=== PATIENT | female | born 1930 | race Caucasian/White ===

== ENCOUNTER 2017-11-08 21:04 | Emergency (ER) | payer MEDICARE ==
[~2017-11-08] VITALS: Ht 152.4 cm; Wt 104.3 kg
[~2017-11-08 21:04] MED LIST: AMIT25; AMIT50; AMIT50 PO; AMLO5 PO; ASPI81CH; ASPI81EC PO; BACTRIM DS PO; CALCNI; CHOL10002 PO; CLOP75 PO; CODGUAEL PO; COLE625 PO; CORGARD40 MG PO; DOCU100 PO; DOXY100 PO; Dicyclomine HCl10 MG PO; Diovan320 MG PO; ESTR25VT; ESTR25VT PV; ESZO1 PO; ESZO3 PO; EZET10; EZET10 PO; FOSI10; HYDCHL12.5; HYDCHL25; HYDCHL25 PO; I-CAPS WITH LU1 EACH PO; LORA1; METF500; METF500 PO; METO50ER PO; NADO20; NADO20 PO; NADO40; NADO40 PO; NADO80; NITR.6SL SL; Norco 5-325 Ta1 EACH PO; ONDA4ODT MM; Ocuvite Lutein1 EACH PO; PHENA200; PHENA200 PO; PIOG15; PIOG30 PO; ROSU10TA; RXSULTRIDS; SALONPAS TOP; SPIR25; SPIR25 PO; SULTRIDS PO; SULTRISS PO; TORSE20 PO; TRAACE; VAGIFEM; [UNRECOGNIZED DRUG - OTHER] PO
== END 2017-11-08 22:21 | disposition home or self-care (01) ==
LOC: ER 21:04
DX: H11.32 Conjunctival hemorrhage, left eye (principal); E11.9 Type 2 diabetes mellitus without complications; E78.00 Pure hypercholesterolemia, unspecified; Z88.1 Allergy status to other antibiotic agents; Z88.8 Allergy status to other drugs, medicaments and biological substances; Z88.5 Allergy status to narcotic agent; Z88.6 Allergy status to analgesic agent; Z79.899 Other long term (current) drug therapy
CPT/HCPCS: 99282

== ENCOUNTER → 2017-11-11 | Outpatient (CLI) | payer MEDICARE ==
[2017-11-11 14:52] LABS: Source, Urine Clean Catch
[2017-11-11 16:06] LABS: Bilirubin, Urine Neg (Neg); Blood, Urine Neg (Neg); Glucose Qualitative, Urine Neg (Neg); Ketones, Urine Neg (Neg); Leukocyte Esterase, Urine 2+ (Neg); Nitrite, Urine Neg (Neg); Protein, Urine 2+ (Neg); Specific Gravity, Urine 1.015 (1.003-1.022); Urobilinogen, Urine NORM (Normal)
[2017-11-11 16:18] LABS: Appearance, Urine Clear (Clear); Color, Urine Pale Yellow (P-Yellow)
[2017-11-11 16:27] LABS: Bacteria Mod /hpf; Squamous Epithelial Cells Mod /hpf (Few); White Blood Cells, Urine 25-50 /hpf (0-5)
== END | disposition home or self-care (01) ==
LOC: LAB SHORT 14:51 → LAB 14:51 → EDSTATUS 11-11 14:30 → LAB FUT 11-11 14:30
PROVIDERS: Internal Medicine
DX: N39.0 Urinary tract infection, site not specified (principal)
CPT/HCPCS: 81001; 87077; 87086; 87186

== ENCOUNTER → 2017-11-19 | Outpatient (CLI) | payer MEDICARE ==
[2017-11-19 09:55] LABS: Source, Urine Clean Catch
[2017-11-19 12:52] LABS: Bilirubin, Urine Neg (Neg); Blood, Urine Neg (Neg); Glucose Qualitative, Urine Neg (Neg); Ketones, Urine Neg (Neg); Leukocyte Esterase, Urine Neg (Neg); Nitrite, Urine Neg (Neg); Protein, Urine Neg (Neg); Urobilinogen, Urine NORM (Normal)
[2017-11-19 13:11] LABS: Appearance, Urine Clear (Clear); Color, Urine Pale Yellow (P-Yellow)
== END | disposition home or self-care (01) ==
LOC: LAB 09:54 → LAB SHORT 09:54 → EDSTATUS 11-14 17:50 → LAB FUT 11-14 17:50
PROVIDERS: Internal Medicine
DX: N39.0 Urinary tract infection, site not specified (principal)
CPT/HCPCS: 81003

== ENCOUNTER → 2017-11-27 | Outpatient (CLI) | payer MEDICARE | END | disposition home or self-care (01) | LOC: LAB 13:41 → LAB SHORT 13:41 | DX: N39.0 Urinary tract infection, site not specified (principal) | CPT/HCPCS: 87077; 87086; 87186 ==

== ENCOUNTER → 2018-08-25 | Outpatient (CLI) | payer MEDICARE ==
[~2018-08-25] MED LIST changes: +ASCO500; +ASPI325 PO; +Avapro150 MG PO; +GLIM2 PO; +POTCHL20ER PO
[2018-08-25 09:53] LABS: Source, Urine Clean Catch
[2018-08-25 12:56] LABS: Appearance, Urine Hazy (Clear); Bilirubin, Urine Neg (Neg); Blood, Urine 1+ (Neg); Color, Urine Yellow (P-Yellow); Glucose Qualitative, Urine Neg (Neg); Ketones, Urine Neg (Neg); Leukocyte Esterase, Urine 1+ (Neg); Nitrite, Urine Neg (Neg); Protein, Urine 1+ (Neg); Specific Gravity, Urine 1.015 (1.003-1.022); Urobilinogen, Urine NORM (Normal)
[2018-08-25 14:01] LABS: Red Blood Cells, Urine 0-2 /hpf (0-2)
[2018-08-25 14:02] LABS: Bacteria Not Seen /hpf; Squamous Epithelial Cells Few /hpf (Few)
== END | disposition home or self-care (01) ==
LOC: LAB SHORT 09:52 → LAB 09:52
PROVIDERS: Internal Medicine
DX: N39.0 Urinary tract infection, site not specified (principal)
CPT/HCPCS: 81001; 87077; 87086; 87186

== ENCOUNTER 2019-01-27 20:42 | Observation (INO) | payer MEDICARE ==
[~2019-01-27] VITALS: Ht 152.4 cm; Wt 82.3 kg
[2019-01-27 21:07] LABS: BASOPHILS ABSOLUTE AUTO 0.07 K/mm3 (0.00-0.23); BASOPHILS PERCENT AUTO 1 % (0-2); EOSINOPHILS ABSOLUTE AUTO 0.34 K/mm3 (0.00-0.68); EOSINOPHILS PERCENT AUTO 3 % (0-6); Hematocrit 38.5 % (33.0-51.0); Hemoglobin 12.4 g/dL (11.5-16.0); IMMATURE GRAN ABSOLUTE AUTO 0.03 K/mm3 (0.00-0.10); IMMATURE GRAN PERCENT AUTO 0 % (0-1); LYMPHOCYTES ABSOLUTE AUTO 2.63 K/mm3 (0.84-5.20); LYMPHOCYTES PERCENT AUTO 24 % (21-46); MONOCYTES ABSOLUTE AUTO 0.91 K/mm3 (0.16-1.47); MONOCYTES PERCENT AUTO 8 % (4-13); Mean Corpuscular HGB 30.3 pg (26.0-34.0); Mean Corpuscular HGB Conc 32.2 g/dL (31.5-36.5); Mean Corpuscular Volume 94 fL (80-100); Mean Platelet Volume 10.4 fL (9.1-12.4); NEUTROPHILS ABSOLUTE AUTO 7.14 K/mm3 (1.96-9.15); NEUTROPHILS PERCENT AUTO 64 % (41-73); Platelet Count 263 K/mm3 (150-400); RDW Coefficient Variation 13.2 % (11.7-14.2); RDW Standard Deviation 45.5 fL (35.1-46.3); Red Blood Cell Count 4.09 M/mm3 (3.80-5.20); White Blood Cell Count 11.12 K/mm3 (4.00-11.30)
[2019-01-27 21:28] LABS: Alanine Aminotransfer (ALT/SGP 27 U/L (12-78); Albumin, Blood 4.1 g/dL (3.4-5.0); Albumin/Globulin Ratio 1.1 (0.8-1.8); Alk Phos 87 U/L (50-136); Anion Gap 10 mmol/L (6-16); Aspartate Aminotrans (AST/SGOT 14 U/L (12-37); Bilirubin, Total 0.4 mg/dL (0.1-1.0); Blood Urea Nitrogen 46 mg/dL (8-24); CO2, Blood 22 mmol/L (21-32); Calcium, Blood 9.4 mg/dL (8.5-10.1); Chloride, Blood 105 mmol/L (98-108); Creatinine, Blood 1.64 mg/dL (0.40-1.00); Globulin, Blood 3.7 g/dL (2.2-4.0); Glomerular Filtration Rate 31 (60-); Glucose, Blood 215 mg/dL (70-99); Potassium, Blood 3.8 mmol/L (3.5-5.5); Sodium, Blood 137 mmol/L (136-145); Total Protein, Blood 7.8 g/dL (6.4-8.2); Troponin I <0.015 ng/mL (0.000-0.040)
[2019-01-27] MEDS ORDERED: CEPH250A PO (21:45)
[2019-01-27 23:02] LABS: Source, Urine Clean Catch
[2019-01-27 23:04] LABS: Bilirubin, Urine Neg (Neg); Blood, Urine Neg (Neg); Glucose Qualitative, Urine Neg (Neg); Ketones, Urine Neg (Neg); Leukocyte Esterase, Urine Neg (Neg); Nitrite, Urine Neg (Neg); Protein, Urine 2+ (Neg); Specific Gravity, Urine 1.015 (1.003-1.022); Urobilinogen, Urine NORM (Normal)
[2019-01-27 23:05] LABS: Appearance, Urine Clear (Clear); Color, Urine Yellow (P-Yellow)
[2019-01-27 23:15] LABS: Bacteria Not Seen /hpf; Red Blood Cells, Urine Not Seen /hpf (0-2); Squamous Epithelial Cells Few /hpf (Few); White Blood Cells, Urine Rare /hpf (0-5)
[2019-01-28 00:01] LABS: International Normalized Ratio 0.96; Prothrombin Time Results 10.2 Sec (9.7-11.5)
--- NOTE | 2019-01-28 05:36 | NUR ---
NEW ADMIT ARRIVED FROM ER VIA STRETCHER AT 0156. PT. A&O X4, AMBULATES X1 ASSIST. ASSISTED INTO BED BY WRAP CHECKER AND THIS NURSE. PT. ON HEPARIN GTT WHICH WAS STARTED IN THE ED, TOLERATING WELL. NPO FOR AM VQ SCAN. R/O PE DUE TO ELEVATED D-DIMER AND C/O LT CALF PAIN W/ SWELLING. VENOUS DOPPLER TO BE DONE. PT. USES CPAP AT HOME, IS REFUSING TO USE CPAP WHILE IN THE HOSPITAL. PLACED ON CONTINOUS PULSE OXIMETRY PER ORDER. NOTED SATS DROP INTO THE HIGH 80'S WHEN SLEEPING. 1L OF 02 PLACED ON PT. FOR COMFORT. PT. RESTED COMFORTABLY T/O NIGHT, NO APPARENT DISTRESS NOTED. CALL LIGHT IS WITHIN REACH AND SIDE RAILS UP X2. WILL CONT TO MONITOR.
--- NOTE | 2019-01-28 08:00 | NUR ---
PT. HAS 2 IV'S IN HER RAC AND RFA. NOT DOCUMENTED WHEN PLACED IN ER.
[2019-01-28 08:35] LABS: Hematocrit 37.2 % (33.0-51.0); Hemoglobin 12.1 g/dL (11.5-16.0); Mean Corpuscular HGB 30.4 pg (26.0-34.0); Mean Corpuscular HGB Conc 32.5 g/dL (31.5-36.5); Mean Corpuscular Volume 94 fL (80-100); Mean Platelet Volume 10.6 fL (9.1-12.4); Platelet Count 249 K/mm3 (150-400); RDW Coefficient Variation 13.3 % (11.7-14.2); RDW Standard Deviation 45.5 fL (35.1-46.3); Red Blood Cell Count 3.98 M/mm3 (3.80-5.20); White Blood Cell Count 9.33 K/mm3 (4.00-11.30)
[2019-01-28 08:52] LABS: Bun/Creatinine Ratio 28.3 (12.0-20.0); Calcium, Blood 9.2 mg/dL (8.5-10.1); Creatinine, Blood 1.2 mg/dL (0.40-1.00); Potassium, Blood 4.1 mmol/L (3.5-5.5)
[2019-01-28 09:01] LABS: International Normalized Ratio 0.97; Prothrombin Time Results 10.3 Sec (9.7-11.5)
--- NOTE | 2019-01-28 10:53 | NUR ---
Echocardiogram completed.
[2019-01-28] MEDS ORDERED: NITR.6SL SL ×2 (16:50→16:57)
--- NOTE | 2019-01-28 16:56 | NUR ---
PT. IV IN THE R AC AND RFA DISCONTINUED INTACT
== END 2019-01-28 17:58 | disposition home or self-care (01) ==
LOC: ER 20:42 → MEDS 20:43 → ERHOLD 20:43 → MEDS 01-28 01:52 → ENPENDDIS 01-28 16:03 → MEDS 01-28 17:58
PROVIDERS: Emergency Medicine; Nurse Practitioner Acute Care; ADMIT Hospitalist
DX: R00.0 Tachycardia, unspecified (principal); R07.89 Other chest pain; E11.22 Type 2 diabetes mellitus with diabetic chronic kidney disease; I13.0 Hypertensive heart and chronic kidney disease with heart failure and stage 1 through stage 4 chronic kidney disease, or unspecified chronic kidney disease; I50.42 Chronic combined systolic (congestive) and diastolic (congestive) heart failure; N18.3 Chronic kidney disease, stage 3 (moderate); I25.10 Atherosclerotic heart disease of native coronary artery without angina pectoris; Z88.1 Allergy status to other antibiotic agents; Z95.5 Presence of coronary angioplasty implant and graft; Z88.8 Allergy status to other drugs, medicaments and biological substances; Z88.5 Allergy status to narcotic agent; Z79.899 Other long term (current) drug therapy
CPT/HCPCS: 36415; 71046; 78582; 80048; 80053; 81001; 82947; 83735; 83880; 84484; 85025; 85027; 85379; 85610; 85730; 93005; 93010; 93306; 93971; 94762; 96360; 96361; 99285-25; A9540; A9558; G0378; J1644; J7030

== ENCOUNTER → 2019-04-03 | Outpatient (CLI) | payer MEDICARE ==
[~2019-04-03] MED LIST changes: +CEPH250A PO
[2019-04-03 10:15] LABS: Source, Urine Clean Catch
[2019-04-03 10:52] LABS: Appearance, Urine Hazy (Clear); Bilirubin, Urine Neg (Neg); Blood, Urine 2+ (Neg); Color, Urine Yellow (P-Yellow); Glucose Qualitative, Urine Neg (Neg); Ketones, Urine Neg (Neg); Leukocyte Esterase, Urine 3+ (Neg); Nitrite, Urine Neg (Neg); Protein, Urine 1+ (Neg); Urobilinogen, Urine NORM (Normal)
[2019-04-03 11:38] LABS: Bacteria Mod /hpf; Squamous Epithelial Cells Few /hpf (Few); White Blood Cells, Urine 25-50 /hpf (0-5)
== END | disposition home or self-care (01) ==
LOC: LAB 10:14 → LAB SHORT 10:14 → LAB FUT 04-03 10:10
PROVIDERS: Internal Medicine
DX: R30.0 Dysuria (principal); R35.0 Frequency of micturition
CPT/HCPCS: 81001; 87077; 87086; 87186

== ENCOUNTER → 2019-04-10 | Outpatient (CLI) | payer MEDICARE ==
[2019-04-10 08:44] LABS: Source, Urine Clean Catch
[2019-04-10 10:20] LABS: Appearance, Urine Clear (Clear); Bilirubin, Urine Neg (Neg); Blood, Urine 1+ (Neg); Color, Urine Yellow (P-Yellow); Glucose Qualitative, Urine Neg (Neg); Ketones, Urine Neg (Neg); Leukocyte Esterase, Urine 2+ (Neg); Nitrite, Urine Neg (Neg); Protein, Urine 2+ (Neg); Specific Gravity, Urine 1.015 (1.003-1.022); Urobilinogen, Urine NORM (Normal)
[2019-04-10 10:40] LABS: Bacteria Few /hpf; White Blood Cells, Urine 50-100 /hpf (0-5)
[2019-04-10 10:41] LABS: Squamous Epithelial Cells Mod /hpf (Few); Transitional Epithelial Cells Few /hpf (0-Rare)
== END | disposition home or self-care (01) ==
LOC: LAB 08:41 → LAB SHORT 08:41
PROVIDERS: Internal Medicine
DX: N39.0 Urinary tract infection, site not specified (principal)
CPT/HCPCS: 81001; 87086